=== PATIENT | male | born 1950 | race Caucasian/White ===

== ENCOUNTER 2016-08-02 14:05 | Emergency (ER) | payer OTHER ==
[~2016-08-02] VITALS: Ht 172.7 cm; Wt 90.9 kg
[~2016-08-02 14:05] MED LIST: DOXA1 PO
[2016-08-02] MEDS ORDERED: LIDOCAINE HCL BUFFERED 1% 20 ML VIAL INJ ONE (16:30)
[2016-08-02 17:52] VITALS: BP 124/83
== END 2016-08-02 18:06 | disposition home or self-care (01) ==
LOC: EMS 14:07
DX: L02.215 Cutaneous abscess of perineum (principal)
CPT/HCPCS: 46040; 99284; J3490; 99283

== ENCOUNTER 2016-08-04 18:16 | Emergency (ER) | payer OTHER ==
[~2016-08-04] VITALS: Ht 172.7 cm; Wt 90.9 kg
[2016-08-04 21:23] VITALS: BP 120/76
== END 2016-08-04 21:25 | disposition home or self-care (01) ==
LOC: EMS 18:21
DX: L02.31 Cutaneous abscess of buttock (principal)
CPT/HCPCS: 99282; 99283

== ENCOUNTER 2017-03-05 11:23 | Emergency (ER) | payer OTHER ==
[~2017-03-05] VITALS: Ht 172.7 cm; Wt 95.5 kg
[2017-03-05] MEDS ORDERED: DOXY150T PO (11:38)
[2017-03-05] MEDS ORDERED: KETOROLAC TROMETHAMINE 60 MG/2 ML VIAL IM ONE (12:45)
[2017-03-05 13:05] VITALS: BP 138/89
== END 2017-03-05 14:28 | disposition home or self-care (01) ==
LOC: EMS 11:24
DX: S20.229A Contusion of unspecified back wall of thorax, initial encounter (principal); Z79.899 Other long term (current) drug therapy; W18.39XA Other fall on same level, initial encounter; Y93.89 Activity, other specified; Y92.89 Other specified places as the place of occurrence of the external cause; Y99.8 Other external cause status
CPT/HCPCS: 71010; 73060; 96372; 99284; J1885

== ENCOUNTER 2017-03-13 21:34 | Emergency (ER) | payer OTHER ==
[~2017-03-13] VITALS: Ht 172.7 cm; Wt 90.0 kg
[~2017-03-13 21:34] MED LIST changes: +DOXY150T PO
[2017-03-13 22:06] LABS: BASOPHILS # (AUTO) 0.02 K/uL (0.00-0.20); BASOPHILS % (AUTO) 0.3 % (0.0-2.0); EOSINOPHILS % (AUTO) 1.42 % (1.0-6.0); HEMATOCRIT 40.2 % (41-53); HEMOGLOBIN 13.8 g/dL (13.5-17.5); LYMPHOCYTES # (AUTO) 1.1 K/uL (1.0-4.8); LYMPHOCYTES % (AUTO) 16.1 % (22.0-44.0); MEAN CORPUSCULAR HEMOGLOBIN 34.3 pg (26.0-34.0); MEAN CORPUSCULAR HGB CONC 34.3 G/dL (31.0-37.0); MEAN CORPUSCULAR VOLUME 100 fL (80-100); MONOCYTES # (AUTO) 0.5 K/uL (0.1-1.0); MONOCYTES % (AUTO) 6.7 % (2.0-9.0); NEUTROPHILS # (AUTO) 5.3 K/uL (1.8-7.7); NEUTROPHILS % (AUTO) 75.5 % (40.0-70.0); PLATELET COUNT (AUTO) 181 K/uL (150-450); RED BLOOD CELL COUNT(AUTO) 4.02 MIL/uL (4.50-5.90); RED CELL DISTRIBUTION WIDTH 13.2 % (11.5-14.5)
[2017-03-13] MEDS ORDERED: ASPIRIN 325 MG EC TABLET PO ONE (22:15)
[2017-03-13 22:16] LABS: ANION GAP 6 mmol/L (8-16); CALCIUM, TOTAL 8.6 mg/dL (8.8-10.5); CARBON DIOXIDE 28 mmol/L (22-29); CHLORIDE 101 mmol/L (98-107); CREATININE 0.96 mg/dL (0.60-1.30); GLOMERULAR FILTR. RATE CALC > 60 mL/min (>60); POTASSIUM 4.3 mmol/L (3.5-5.1); SODIUM SERUM 135 mmol/L (136-145); UREA NITROGEN, BLOOD 17 mg/dL (7-18)
[2017-03-13 22:22] LABS: ALANINE AMINOTRANSFERASE 32 U/L (12-78); ALBUMIN 3.4 g/dL (3.4-5.0); ASPARTATE AMINOTRANSFERASE 25 U/L (15-37); BILIRUBIN,TOTAL 0.4 mg/dL (0.1-1.0); TOTAL PROTEIN, SERUM 6.5 g/dL (6.4-8.2)
[2017-03-13 22:28] LABS: RBC MORPHOLOGY COMMENT ABNORMAL RBC MORPH
[2017-03-14 01:17] VITALS: BP 116/62
== END 2017-03-14 01:46 | disposition home or self-care (01) ==
LOC: EMS 21:35
DX: R07.89 Other chest pain (principal); R06.00 Dyspnea, unspecified
CPT/HCPCS: 93005; 99285